=== PATIENT | male | born 1985 | race Caucasian/White ===

== ENCOUNTER 2024-05-08 15:17 | Emergency (ER) | payer MEDICAID, SELFPAY ==
--- NOTE | ~2024-05-08 | XR_ITS ---
EXAMINATION: XR SHOULDER LEFT XR ELBOW LEFT XR WRIST LEFT CLINICAL INFORMATION: History of fall. Difficulty moving the arm. Pain after injury. COMPARISON: None TECHNIQUE: Left shoulder, 3 views Left elbow, 3 views Left wrist, 4 views FINDINGS: Left shoulder: Bones, joints and soft tissues are normal. No fracture or subluxation. There is a bone island of the superior humeral head. No suspicious osseous lesion. Left elbow: Bones have normal alignment. Joint spaces are maintained. No fracture, subluxation or elbow joint effusion. Left wrist: The distal radius, ulna and radioulnar joint are intact. No acute fracture or subluxation. The joint spaces of the wrist are maintained. A well-corticated 0.3 cm ossicle projects posterior to the wrist. XR/XR wrist LT min 3V IMPRESSION: * No fracture or subluxation at the left shoulder. * No evidence of acute osseous injury at the left wrist or elbow. Bones have normal alignment.
--- NOTE | ~2024-05-08 | CT_ITS ---
CT HEAD WITHOUT IV CONTRAST CT CERVICAL SPINE WITHOUT IV CONTRAST CT MAXILLOFACIAL WITHOUT IV CONTRAST INDICATION: Trauma COMPARISON: None TECHNIQUE: Multidetector CT acquisitions of the head, maxillofacial region, and cervical spine were obtained without IV contrast. Multiplanar reformats were acquired and utilized for image interpretation. DLP: 445 mGy-cm FINDINGS: HEAD: There is no intracranial hemorrhage or extra-axial fluid collection. The ventricles are unremarkable without hydrocephalus. No midline shift or mass effect. Parada to white matter differentiation is diffusely maintained without evidence of an evolved acute territorial infarct. The basilar cisterns are preserved. No soft tissue or osseous abnormality. The mastoid air cells and paranasal sinuses are notable for mild diffuse sinus disease. No air-fluid level. MAXILLOFACIAL: The mandible, maxilla, pterygoid plates, zygomatic arches, paranasal sinus bolivar, and bony orbits are intact. No acute osseous abnormality within the maxillofacial region. There is destruction of the nasal bones bilaterally without overlying soft tissue swelling favoring chronic changes. The paranasal sinuses and mastoid air cells remain well-aerated. The globes and extra-ocular musculature is intact. No significant soft tissue findings. CERVICAL SPINE: There is anatomic alignment of the vertebral bodies and posterior elements. There is no acute fracture and there is no acute subluxation. The craniocervical and atlantoaxial articulations are normal. There is no prevertebral soft tissue swelling. No significant soft tissue abnormality within the neck. Straightening of the cervical spine suggest spasm. The visualized lung apices are clear. CT/CT cervical spine wo IV con IMPRESSION: 1. No acute intracranial abnormality. 2. No acute osseous abnormality within the cervical spine. 3. No definite acute osseous abnormality within the maxillofacial region. Nasal bone deformities suggesting chronic changes as above. Correlate with physical exam.
--- NOTE | ~2024-05-08 | XR_ITS ---
EXAMINATION: XR SHOULDER LEFT XR ELBOW LEFT XR WRIST LEFT CLINICAL INFORMATION: History of fall. Difficulty moving the arm. Pain after injury. COMPARISON: None TECHNIQUE: Left shoulder, 3 views Left elbow, 3 views Left wrist, 4 views FINDINGS: Left shoulder: Bones, joints and soft tissues are normal. No fracture or subluxation. There is a bone island of the superior humeral head. No suspicious osseous lesion. Left elbow: Bones have normal alignment. Joint spaces are maintained. No fracture, subluxation or elbow joint effusion. Left wrist: The distal radius, ulna and radioulnar joint are intact. No acute fracture or subluxation. The joint spaces of the wrist are maintained. A well-corticated 0.3 cm ossicle projects posterior to the wrist. XR/XR elbow LT min 3V IMPRESSION: * No fracture or subluxation at the left shoulder. * No evidence of acute osseous injury at the left wrist or elbow. Bones have normal alignment.
--- NOTE | ~2024-05-08 | XR_ITS ---
EXAMINATION: XR SHOULDER LEFT XR ELBOW LEFT XR WRIST LEFT CLINICAL INFORMATION: History of fall. Difficulty moving the arm. Pain after injury. COMPARISON: None TECHNIQUE: Left shoulder, 3 views Left elbow, 3 views Left wrist, 4 views FINDINGS: Left shoulder: Bones, joints and soft tissues are normal. No fracture or subluxation. There is a bone island of the superior humeral head. No suspicious osseous lesion. Left elbow: Bones have normal alignment. Joint spaces are maintained. No fracture, subluxation or elbow joint effusion. Left wrist: The distal radius, ulna and radioulnar joint are intact. No acute fracture or subluxation. The joint spaces of the wrist are maintained. A well-corticated 0.3 cm ossicle projects posterior to the wrist. XR/XR shoulder LT min 2V IMPRESSION: * No fracture or subluxation at the left shoulder. * No evidence of acute osseous injury at the left wrist or elbow. Bones have normal alignment.
[2024-05-08 15:54] VITALS: BP 135/83; PULSE 83; RESP 19; TEMP 36.6; O2SAT 97; BMI 29.3
--- NOTE | 2024-05-08 15:54 | ED.GENADULT ---
HPI - General Adult General Chief complaint: Extremity Injury, Upper Stated complaint: L arm and chin inj Time Seen by Provider: 05/08/24 18:07 Source: patient Mode of arrival: ambulatory Limitations: no limitations History of Present Illness HPI narrative: Patient is a 38-year-old male who presents emergency department for evaluation after a fall. He reports that he was building a deck at his mother's house, the ladder had accidentally fallen from beneath him, reports that he fell approximately 6-10 feet without any loss of consciousness. He fell prone striking his chin onto the ground bracing his fall with the bilateral forearms. He reports pain to without loose with, is able to open and close the jaw without difficulty denies head or neck pain. He reports that he initially had significant pain to the left elbow and wrist, it was unable to move the extremity without severe pain but this has improved since arrival. Denies any dizziness, lightheadedness, vision changes, chest pain, shortness of breath, abdominal pain, nausea, vomiting, genitourinary symptoms, numbness or tingling of the extremities. Related Data Allergies Allergy/AdvReac Type Severity Reaction Status Date / Time No Known Allergies Allergy Verified 05/08/24 15:57 [No Known Allergies*] Review of Systems Review of Systems: Yes all other systems are reviewed and are negative PMFSH Past Medical History Attestation statement: The following information was validated with the patient. Source: old records reviewed Social History Social History Advance Directives: No Advance Directives Information Provided: No Do you have a plan to hurt others: No Plan Physical Exam ED Vital Signs: Vital Signs - 24 hr 05/08/24 15:54 05/08/24 18:12 Temperature 98 F 97.3 F Pulse Rate 83 66 Respiratory Rate 19 18 Blood Pressure 135/83 96/60 Pulse Oximetry 97 97 Oxygen Delivery Method Room Air BMI result Body Mass Index 29.3 Appearance: Alert.?Oriented to person, place and time. No acute distress.?Normal affect. Eyes: Pupils equal, round and reactive to light.? ENT: Pharynx normal.?? Neck: Normal inspection.? Neck supple.?? CVS: Heart sounds normal. Normal heart rate and rhythm.? Pulses normal.?? Respiratory: No respiratory distress.? Lung sounds clear to auscultation bilaterally?? Abdomen: Soft and non-tender. Normoactive bowel sounds. No pulsatile mass.?? Skin: Skin warm and dry.? Normal skin color.? Extremities: No lower extremity edema.? No obvious deformity to the left upper extremity. Pain with flexion extension of the left wrist without obvious deformity, 2+ radial pulse. Full range of motion to the left elbow and shoulder, abrasion to the proximal left forearm with ecchymosis. Neuro: Moves all extremities spontaneously. Sensation intact bilaterally. CN II-XII intact. No focal neuro deficits. Ambulates with normal steady gait. Course Course Course Narrative: RME performed by Mirtha Gonzalez PA-C. Patient is a 38 year old assigned male at presenting to the emergency department with a chin and left arm injury after falling approximately 8-10 feet. Patient states he fell and landed directly on the left elbow and chin. Denies any loss of consciousness. 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 Imaging ordered. Patient placed back in the waiting room pending room availability and results. Medical Decision Making Medical Decision Making MDM Narrative: Patient is a 38-year-old male who presents emergency department for evaluation after a fall as per HPI. Overall the time my examination he appears well, has no focal neurological deficits, vital signs are stable. Head is normocephalic and atraumatic, CT of the head and cervical spine was without evidence of acute fracture, subluxation, ICH, SDH. CT facial bones reveals no evidence of acute fracture, he has mild tenderness upon palpation to the mid mandible without palpable deformity, full range of motion to the jaw. Dentition is normal. Regarding his left upper extremity, he has full active range of motion to the left elbow, mildly decreased range of motion to the left wrist, and diffuse tenderness concerning for acute sprain. Extremities neurovascularly intact distally. He was provided with a volar splint. Discussed conservative treatment, signs and symptoms to monitor for at home including signs of concussion. His chest pain abdominal examination is benign, clinically have low suspicion acute intra-abdominal pathology. Advised outpatient follow-up with primary care provider, discussed worrisome signs and symptoms that would warrant re-evaluation in the emergency department. Differential Diagnosis Differential Diagnoses: The differential diagnosis associated with the presentation includes (See narrative above) Admission/Observation Consideration of admission/observation: Escalation of care including admission/observation considered Independent Interpretation I performed an independent interpretation of an: Plain X-Ray (No acute fracture dislocation of the left elbow/wrist) Radiology Impression Discussion of test interpretation with radiology: I have reviewed the radiologist's reading. Radiologist Impression: CT/CT cervical spine wo IV con IMPRESSION: 1. No acute intracranial abnormality. 2. No acute osseous abnormality within the cervical spine. 3. No definite acute osseous abnormality within the maxillofacial region. Nasal bone deformities suggesting chronic changes as above. Correlate with physical exam. XR/XR elbow LT min 3V IMPRESSION: * No fracture or subluxation at the left shoulder. * No evidence of acute osseous injury at the left wrist or elbow. Bones have normal alignment. Independent Historian Clinical information obtained from an independent historian. History obtained from or confirmed by: Parent Prescription Management I considered prescription management with: Pain Medication (See narrative above) Discharge Plan Discharge Clinical Impression: Left wrist sprain, Chin contusion, Contusion of elbow, left, Fall Instructions: Contusion in Adults (ED), R.I.C.E. Treatment (ED), Wrist Sprain (ED) Additional Instructions: You can take ibuprofen 200 mg, 3 tablets (600mg) every 6-8 hours as needed for pain, in addition to Tylenol 500 mg, 2 tablets (1,000mg) every 4-6 hours as needed for pain, but not to exceed 3 doses daily (3,000mg).? Referrals: Joel Cochran MD [Primary Care Provider] - Print Language: Slovenian
[2024-05-08 18:12] VITALS: BP 96/60; PULSE 66; RESP 18; TEMP 36.3; O2SAT 97
[2024-05-08 19:33] VITALS: BP 112/77; PULSE 80; RESP 18; TEMP 36.9; O2SAT 97
[2024-05-08 19:42] VITALS: BP 112/77; PULSE 80; RESP 18; TEMP 36.9; O2SAT 97
== END 2024-05-08 19:42 | disposition home or self-care (01) ==
PROVIDERS: Emergency Provider Student in an Organized Health Care Education/Training Program; PCP Internal Medicine
DX: S63.502A Unspecified sprain of left wrist, initial encounter (principal); S00.83XA Contusion of other part of head, initial encounter; S50.02XA Contusion of left elbow, initial encounter; R51.9 Headache, unspecified; M25.512 Pain in left shoulder; X58.XXXA Exposure to other specified factors, initial encounter; W11.XXXA Fall on and from ladder, initial encounter; Y93.89 Activity, other specified; Y92.096 Garden or yard of other non-institutional residence as the place of occurrence of the external cause; Y99.8 Other external cause status
CPT/HCPCS: 29125; 70450; 70486; 72125; 73030; 73080; 73110; 99284

== ENCOUNTER → 2025-04-13 14:53 | Outpatient (BNVA) | payer SELFPAY | PROVIDERS: PCP Internal Medicine; Visit Provider Physician Assistant Medical | DX: Z02.79 Encounter for issue of other medical certificate (principal) ==

== ENCOUNTER 2025-09-10 12:31 | Emergency (ER) | payer OTHER, SELFPAY ==
--- NOTE | ~2025-09-10 | CT_ITS ---
EXAMINATION: CT HEAD WITHOUT CONTRAST CLINICAL INFORMATION: dizziness COMPARISON: May 08, 2024. TECHNIQUE: Contiguous axial imaging was performed from the skull base to vertex without intravenous administration of contrast. This CT examination was performed using dose optimization techniques as appropriate, variously including the following: *Automated exposure control *Adjustment of mA and/or kV according to patient size (this includes techniques or standardized protocols for targeted exams where dose is matched to indication/reason for exam; i.e. extremities or head) *Use of iterative reconstruction technique DLP: 692 mGy-cm FINDINGS: Deformity of the paranasal bones, old. No acute fracture, bony calvarium. No acute intracranial hemorrhage, mass effect, midline shift, hydrocephalus or herniation. Parada-white matter differentiation is normal. Posterior cranial fossa contents demonstrated no acute hemorrhage or mass effect. Normal position of the cerebellar tonsils. Sellar/suprasellar region demonstrated no gross masses. Mucosal thickening, paranasal sinuses without air-fluid levels. Tympanic cavities and mastoid cells are aerated. CT/CT head/brain wo IV con IMPRESSION: No acute intracranial hemorrhage or acute brain abnormality by CT. Old traumatic deformities, nasal bones. Paranasal sinus disease, likely chronic. Electronically signed by: Lake Rogers MD 09/10/2025 02:31 PM [facility]
[2025-09-10 13:08] VITALS: BP 123/62; PULSE 80; RESP 18; TEMP 36.5; O2SAT 97; BMI 27.4
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
[2025-09-10 13:36] LABS: MANUAL DIFF FLAG NO
[2025-09-10 13:39] LABS: Hematocrit 45.6 % (42.0-52.0); Hemoglobin 15.3 g/dl (14.0-18.0); Imm Gran Abs Auto 0.14 X10*3/uL (0.00-0.03); Imm Gran Pct Auto 1.1 % (0.0-0.4); Lymphocytes Absolute Auto 2.9 X10*3/uL (1.2-4.9); Mean Corpuscular HGB Conc 33.6 g/dl (31.0-36.0); Mean Corpuscular Hemoglobin 29.9 pg (27.0-33.0); Mean Corpuscular Volume 89.2 fL (80.0-98.0); NRBC Abs Auto 0.000 X10*3/uL (0.0-0.012); NRBC Pct Auto 0.0 /100WBC (0.0-0.2); Platelet Count 306 X10*3/uL (160-400); Red Blood Count 5.11 X10*6/uL (4.60-5.80); White Blood Count 12.6 X10*3/uL (4.8-10.8)
[2025-09-10 13:44] LABS: INTERNATIONAL NORM RATIO 0.9 (0.9-1.1); Prothrombin Time 11.1 SEC (11.2-13.5)
[2025-09-10 13:46] LABS: Partial Thromboplastin Time 28.3 SEC (26.7-34.1)
[2025-09-10 14:01] LABS: Troponin-I High Sensitivity < 2.7 ng/L (<3.5-35.0)
[2025-09-10 14:03] LABS: Alanine Aminotransferase 26 U/L (0-40); Albumin Level 4.3 g/dL (3.5-5.0); Alkaline Phosphatase 60 U/L (39-117); Anion Gap 14 (12-20); Aspartate Amino Transferase 29 U/L (5-37); Blood Urea Nitrogen 20 mg/dL (9-16); Calcium 9.6 mg/dL (8.4-10.2); Carbon Dioxide 27 mmol/L (22-29); Chloride 103 mmol/L (96-108); Creatinine Clr Calc Pharmacy 91.9; Estimated Glomerular Filt Rate 59; Magnesium 2.2 mg/dL (1.6-2.6); Potassium 4.1 mmol/L (3.3-5.1); Sodium 140 mmol/L (135-145); Total Protein 7.4 g/dL (6.5-8.0)
[2025-09-10 16:10] VITALS: BP 123/81; PULSE 70; RESP 16; TEMP 36.5; O2SAT 97
--- NOTE | 2025-09-10 16:21 | ECG_ITS ---
Test Reason : WEAKNESS Blood Pressure : */* mmHG Vent. Rate : 58 BPM Atrial Rate : 58 BPM P-R Int : 144 ms QRS Dur : 92 ms QT Int : 426 ms P-R-T Axes : 57 61 64 degrees QTcB Int : 418 ms Sinus bradycardia Otherwise normal ECG When compared with ECG of 14-Jan-2016 08:39, No significant change was found Referred By: Doc Major Electronically Signed By: YANG AVILA
[2025-09-10 18:01] VITALS: BP 110/75; PULSE 75; RESP 19; TEMP 36.6; O2SAT 98
[2025-09-10 18:16] VITALS: BP 110/75; PULSE 75; RESP 19; TEMP 36.6; O2SAT 98
== END 2025-09-10 18:16 | disposition home or self-care (01) ==
PROVIDERS: Physician Assistant; Emergency Provider Emergency Medicine
DX: G47.419 Narcolepsy without cataplexy (principal); R42 Dizziness and giddiness; H53.8 Other visual disturbances; R00.1 Bradycardia, unspecified; Z79.899 Other long term (current) drug therapy
CPT/HCPCS: 36415; 70450; 80053; 82550; 83735; 84443; 84484; 85025; 85610; 85730; 93005; 99285

== ENCOUNTER → 2025-09-10 13:10 | Outpatient (BNV) | payer MEDICAID, SELFPAY | PROVIDERS: Visit Provider Radiology Diagnostic Radiology | DX: R42 Dizziness and giddiness (principal); J34.89 Other specified disorders of nose and nasal sinuses; Z87.828 Personal history of other (healed) physical injury and trauma | CPT/HCPCS: 70450 ==

== ENCOUNTER → 2025-09-10 16:21 | Outpatient (BNV) | payer MEDICAID, SELFPAY | PROVIDERS: Emergency Provider Emergency Medicine; Visit Provider Internal Medicine | DX: R00.1 Bradycardia, unspecified (principal) | CPT/HCPCS: 93010 ==

== ENCOUNTER 2025-09-17 13:07 | Outpatient (REF) | payer OTHER, SELFPAY ==
[2025-09-17 16:49] LABS: Cholesterol 212 mg/dL (<200); HDL Cholesterol 48 mg/dL (>40); Triglycerides 362 mg/dL (<150)
[2025-09-18 04:37] LABS: Syphilis Screen Nonreactive (Nonreactive)
[2025-09-18 05:12] LABS: HBS Num1 103.61 mIU/mL (0-7.99); HBc Num1 0.10 S/CO (0.00-0.79); HBsAGNum1 0.49 S/CO (0.00-0.99); HIV Num 1 0.09 S/CO (0.00-0.99); Hepatitis A Antibody IgM 0.16 Index (0-0.79); Hepatitis B Surface Antigen Negative (Negative); ~HepC Num1 0.14 S/CO (0.00-0.79); ~Hepatitis A Antibody IgM Nonreactive (Nonreactive); ~Hepatitis B Surface Antibody REACTIVE (Nonreactive); ~Hepatitis C Antibody Nonreactive (Nonreactive)
== END 2025-09-17 13:08 | disposition home or self-care (01) ==
LOC: HO.LAB 13:07
PROVIDERS: Visit Provider Student in an Organized Health Care Education/Training Program
DX: Z00.00 Encounter for general adult medical examination without abnormal findings (principal); R53.83 Other fatigue; F32.A Depression, unspecified; F17.210 Nicotine dependence, cigarettes, uncomplicated; G47.419 Narcolepsy without cataplexy
CPT/HCPCS: 36415; 80061; 82043; 82306; 82570; 83036; 84443; 86704; 86706; 86709; 86780; 86803; 87340; 87389; 96127; 99202; 99385

== ENCOUNTER 2025-09-17 13:07 | Outpatient (AMB) | payer OTHER, SELFPAY ==
[2025-09-17 13:05] VITALS: BP 120/82; PULSE 80; TEMP 36.2; O2SAT 98; BMI 27.5
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
--- OUTSIDE RECORDS SUMMARY | 2025-09-17 17:43 | XMS_ITS | Clinical Summary ---
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 Name Role Phone Unavailable Primary Care Provider Unavailabl e Social History Tobacco Use Types Packs/Day Years Used Date Smoking Tobacco: Never Assessed Sex and Gender Information Value Date Recorded Sex Assigned at Not on file Legal Sex Male 1:35 PM EDT Gender Identity Not on file Sexual Orientation Not on file Plan of Treatment Health Maintenance Due Date Last Done Comments DTaP,Tdap,and Td Vaccines (1 - Tdap) 2006 Hepatitis B Vaccines (1 of 3 - 19+ 3-dose series) 2006 HPV Vaccines (1 - 3-dose SCD M series) 2014 Cholesterol Screening (Lipid Panel) 05/26/2024 HIV Screening 05/26/2024 Hepatitis C Screening 05/26/2024 Social Influencers of Health Screening 05/26/2024 Depression Screening 10/25/2024 COVID-19 Vaccine (1 - 2024-2 6 season) 2025 Influenza Vaccine (#1) 2025 RSV Immunization Adult Patie nts (1 - 1-dose 75+ series) 2062 HIB Vaccines Aged Out No longer eligi ble based on patient's age to complete this topic Hepatitis A Vaccines Aged Out No long er eligible based on patient's age to complete this topic IPV Vaccines Aged Out No longer eligi ble based on patient's age to complete this topic MMR Vaccines Aged Out No longer eligi ble based on patient's age to complete this topic Meningococcal ACWY Vaccine Aged Out N o longer eligible based on patient's age to complete this topic Meningococcal B Vaccine Aged Out No l onger eligible based on patient's age to complete this topic Pneumococcal Vaccine: Pediat rics (0 to 5 Years) and At-Risk Patients (6 to 49 Years) Aged Out No longer eligible b ased on patient's age to complete this topic RSV Immunization Patients Un henri 20 months Aged Out No longer eligible b ased on patient's age to complete this topic Varicella Vaccines Aged Out No longer eligible based on patient's age to complete this topic
== END 2025-09-17 13:45 | disposition home or self-care (01) ==
PROVIDERS: Visit Provider Student in an Organized Health Care Education/Training Program
DX: Z00.00 Encounter for general adult medical examination without abnormal findings (principal); G47.419 Narcolepsy without cataplexy; F32.A Depression, unspecified; F17.200 Nicotine dependence, unspecified, uncomplicated

== ENCOUNTER 2025-09-26 15:14 | Outpatient (AMB) | payer OTHER, SELFPAY ==
[2025-09-26 15:23] VITALS: BP 110/76; PULSE 66; O2SAT 96; BMI 27.7
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
== END 2025-09-26 16:02 | disposition home or self-care (01) ==
LOC: HO.HSMS 15:15
PROVIDERS: PCP Student in an Organized Health Care Education/Training Program; Visit Provider Psychiatry & Neurology Neurology
DX: G47.10 Hypersomnia, unspecified (principal); R06.83 Snoring; F19.90 Other psychoactive substance use, unspecified, uncomplicated
CPT/HCPCS: 99204

== ENCOUNTER 2025-09-26 15:14 | Outpatient (REF) | payer OTHER, SELFPAY ==
--- OUTSIDE RECORDS SUMMARY | 2025-09-26 18:50 | XMS_ITS | Clinical Summary ---
Author Organization [facility] it[facility] Address [address] [place] [id number] Care Team Providers Care Physical Therapy Professor Name Role Phone Unavailable Primary Care Provider [...]
[2025-09-26 19:32] LABS: Folate 7.8 ng/mL (> or = 4.0); Vitamin B12 563 pg/mL (200-900)
== END 2025-09-26 15:15 | disposition home or self-care (01) ==
LOC: HO.HKASLDS 15:14
PROVIDERS: PCP Student in an Organized Health Care Education/Training Program; Visit Provider Psychiatry & Neurology Neurology
DX: G47.10 Hypersomnia, unspecified (principal); R06.83 Snoring; F19.10 Other psychoactive substance abuse, uncomplicated; Z79.899 Other long term (current) drug therapy
CPT/HCPCS: 36415; 82607; 82746; 99202

== ENCOUNTER 2025-10-15 13:58 | Outpatient (AMB) | payer OTHER, SELFPAY ==
--- NOTE | 2025-10-15 14:01 | MHC.PC.OV ---
Vital Signs 10/15/25 14:04 Height 6 ft 2.5 in Weight 224 lb BMI 28.4 BP 123/90 H Blood Pressure Location Lt brachial Position Sitting Respiration 16 Pulse 95 Pulse Source Monitor Temp 98.8 F Temp Source Temporal Artery Scan Oxygen Delivery Method Room Air Oxygen Flow Rate 97 Intake Visit Reasons: 1 Month F/U Narcolepsy Low Pressure Firer Required: No Allergies No Known Allergies (No Known Allergies*) Allergy (Verified 10/15/25 14:02) Medication List - Last Reconciled 10/15/25 by Bailey Joy LPN cholecalciferol (vitamin D3) 1,250 mcg PO QWEEK fluoxetine (Prozac) 10 mg PO DAILY modafinil 200 mg PO DAILY 30 days Tobacco use date assessed: 09/17/25 Dental Screening Dental Screen Date: 09/17/25 HPI HPI Comments History of Present Illness Details History of Present Illness The patient is a 40 year old male presenting for medication management for narcolepsy. He reports that his current regimen of Modafinil 200 mg, taken around 6:30-7:00 AM, is effective until about noon, after which he experiences significant drowsiness. He has been on the 200 mg dose for about 10 days. Prior to this, a 100 mg dose was ineffective, as he was still falling asleep during the day. The patient is also taking Prozac for narcolepsy. He has a sleep study scheduled for November 11. The patient is also being treated for vitamin D deficiency with a weekly supplement. He reports initially taking the medication daily by mistake but has since corrected the frequency. The patient described an episode that occurred last Wednesday where he woke up feeling nauseous and dizzy. After sitting down and drinking juice, he began sweating profusely, became hot, and then experienced a loss of vision upon standing up, though he retained his hearing and sense of touch. An ambulance was called, and paramedics found his vitals to be normal with a blood sugar of 130. He states similar episodes occur about once a year. The patient is currently not working due to his medical condition and is applying for beck assistance. Medical History: - Narcolepsy - Vitamin D deficiency - History of syncopal episodes, occurring approximately once a year Medications: - Modafinil 200 mg, for excessive daytime sleepiness. - Vitamin D, once weekly, for vitamin D deficiency. - Prozac, for narcolepsy. Diagnostic Results: - [id number] testing by paramedics during syncopal episode: Blood sugar 130. Social History - Employment: Patient is currently unable to work due to his medical condition. - Financial: Reports having no income and has applied for state beck assistance. - Substance Use: Patient has been counseled to avoid illicit drugs such as cocaine and heroin. [facility] Medical History (Updated 10/15/25 @ 14:31 by Clay Hackett MD) Narcolepsy Counseling on substance use and abuse Vitamin D deficiency Vasovagal syncope Substance use disorder Snoring Hypersomnia Tobacco use disorder Depression Family History Mother Mental health disorder Father No problems noted. Social History Housing: Other (Hotel) Patient Tobacco Use Status: Current everyday Tobacco user e-Cigarette/Vaping Use: Currently Using service: No Current occupational status: unemployed Cognitive needs: No Hearing needs: No Vision needs: Yes (rx glasses) Questionnaire Thrive Questionnaire Date Thrive assessed: 09/17/25 GAGAN-7 AMB Questionnaire GAGAN-7 Date GAGAN - 7 assessed: 09/17/25 Source: Developed by Drs. Donn Glover, Mary Joy, Lexa Pickering and colleagues, with an educational belkis from [employer]. Review of Systems Narrative Review of Systems - Constitutional: Reports fatigue and drowsiness, particularly in the afternoon. - Neurological: Reports excessive daytime sleepiness and a history of syncopal episodes characterized by dizziness, nausea, and temporary vision loss. - Skin: Reports profuse sweating associated with syncopal episodes. - GI: Reports nausea preceding a syncopal episode. - Eyes: Reports temporary vision loss during a syncopal episode. All systems reviewed & are unremarkable except as reviewed in HPI and above Physical exam (Primary Care) Vital Signs: Last Vital Signs Temp 98.8 F 10/15/25 14:04 Pulse 95 10/15/25 14:04 Resp 16 10/15/25 14:04 BP 123/90 H 10/15/25 14:04 Oxygen Delivery Method Room Air 10/15/25 14:04 Oxygen Flow Rate 97 10/15/25 14:04 BMI result Body Mass Index 28.4 Tobacco/Smoking Status: Tobacco use Status Tobacco use date assessed 09/17/25 10/15/25 14:12 Patient Tobacco Use Status Current everyday Tobacco 10/15/25 14:12 e-Cigarette/Vaping Use Currently Using 10/15/25 14:12 Thrive Assessment: Date of Thrive Assessment Date Thrive assessed 09/17/25 10/15/25 14:12 Narrative Physical Exam General: Alert and oriented, Well nourished, No acute distress. Eye: Pupils are equal, round and reactive to light, Intact accommodation, Extraocular movements are intact, Normal conjunctiva, Vision unchanged. HENT: Normocephalic, Atraumatic, Tympanic membranes are clear, Normal hearing, Oral mucosa is moist, No pharyngeal erythema, Ear canals patent. Respiratory: Lungs CTA bilaterally, No wheeze, Respirations are non-labored. Cardiovascular: Regular rate, Regular rhythm, S1 auscultated, S2 auscultated, No murmur, Good pulses equal in all extremities, Normal peripheral perfusion, No edema. Gastrointestinal: Soft, Non-tender, Non-distended, Normal bowel sounds, No organomegaly. Musculoskeletal: Normal range of motion, Normal strength, No tenderness, No swelling, No deformity, Normal gait. Integumentary: Warm, Dry, [place], Intact. Neurologic: Alert, Oriented, Normal sensory, Normal motor function, No focal defects, Cranial Nerves II-XII are grossly intact, Normal deep tendon reflexes. Psychiatric: Cooperative, Appropriate mood & affect, Normal judgment. 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 - The plan is to increase the total daily dose to 300 mg. A prescription for Modafinil 100 mg tablets will be provided with instructions to take 2 tablets (200 mg) in the morning and 1 tablet (100 mg) at noon. - This dosing strategy aims to extend the therapeutic effect throughout the day and may improve chances of insurance approval. - The patient will continue Prozac. - A sleep study is scheduled for November 11. - Follow up in four weeks to assess efficacy. Code(s): G47.419 - Narcolepsy without cataplexy Category: Medical Qualifiers: Narcolepsy type: primary without cataplexy Qualified Code(s): G47.419 - Narcolepsy without cataplexy (2) Vasovagal syncope: Comment: - The patient described an episode of syncope with a prodrome of nausea, dizziness, and diaphoresis, which is characteristic of a vasovagal event. - Post-event vitals were normal. - The patient is advised to be cautious with positional changes and to log details of any future episodes, including preceding activities and diet. - He was advised to discuss this with his urologist. Code(s): R55 - Syncope and collapse Category: Medical (3) Vitamin D deficiency: Comment: - The patient is on weekly replacement therapy and has corrected an initial misunderstanding of the dosing frequency. - He will continue the weekly Vitamin D supplementation as prescribed. Code(s): E55.9 - Vitamin D deficiency, unspecified Category: Medical (4) Counseling on substance use and abuse: Comment: - The patient was strongly advised to abstain from all illicit drugs, including cocaine and heroin, due to dangerous interactions with Modafinil and to ensure accurate results for his upcoming sleep study. - He was informed that non-adherence would result in the discontinuation of his prescriptions. Code(s): Z71.89 - Other specified counseling Category: Medical Plan: Health Maintenance: - A sleep study is scheduled for November 11 for further evaluation of narcolepsy. - The patient was counseled on the risks of illicit drug use, particularly while taking Modafinil, and advised complete abstinence. Patient was informed and verbally consented to the use of an ambient scribe for clinic note documentation during this visit. Plan I discussed with the patient that his current dose of Modafinil 200 mg is not lasting the full day. We agreed to increase the total daily dose to 300 mg, split into 200 mg in the morning and 100 mg at noon, to provide better symptom coverage. I explained that writing the prescription for 100 mg tablets might circumvent potential insurance issues. We reviewed his recent syncopal episode, and I explained that the symptoms are consistent with a vasovagal event. I advised him to be cautious with positional changes and to discuss the matter further with his urologist. I counseled him strongly on the need to abstain from all illicit drugs like cocaine and heroin, highlighting the risks of interaction with Modafinil and the importance of accurate results for his upcoming sleep study. I made it clear that future prescriptions are contingent on his abstinence. We agreed to follow up in four weeks to review his response to the new medication regimen. Medications: New modafinil Take 2 tabs in the morning, and 1 in the afternoon (for a total of 3) 300 mg (3 x 100 mg) PO QAM 90 tabs 0RF 30 days Discontinued modafinil Discontinued Reason: Doctor's Order 200 mg PO DAILY 30 days 30 tabs 0RF Patient Instructions: - Change your Modafinil dose: Take two 100 mg tablets in the morning and one 100 mg tablet around noon. - Continue to take your vitamin D supplement once per week. - Continue taking Prozac as prescribed. - Do not use any illegal drugs like cocaine or heroin. This is very important for your safety and for your treatment to continue. - Remember your sleep study is scheduled for November 11. - If you experience another episode of dizziness and fainting, be careful when standing up. Keep a log of these events and discuss them with your urologist. - I will help you fill out the paperwork for beck assistance. - We will have a follow-up appointment in about four weeks.
[2025-10-15 14:04] VITALS: BP 123/90; PULSE 95; RESP 16; TEMP 37.1; BMI 28.4
--- OUTSIDE RECORDS SUMMARY | 2025-10-15 17:27 | XMS_ITS | Clinical Summary ---
Author Organization [facility] ity Address [id number] [place] [id number] Care Team Providers Care Senior Accountant Cpa Name Role Phone Unavailable Primary Care Provider [...]
== END 2025-10-15 14:30 | disposition home or self-care (01) ==
LOC: HO.HMCHD 13:58
PROVIDERS: PCP Student in an Organized Health Care Education/Training Program; Visit Provider Student in an Organized Health Care Education/Training Program
DX: G47.419 Narcolepsy without cataplexy (principal); R55 Syncope and collapse; E55.9 Vitamin D deficiency, unspecified; Z71.89 Other specified counseling

== ENCOUNTER → 2025-10-15 13:58 | Outpatient (BNVA) | payer OTHER, SELFPAY | PROVIDERS: PCP Student in an Organized Health Care Education/Training Program; Visit Provider Student in an Organized Health Care Education/Training Program | DX: G47.19 Other hypersomnia (principal); R55 Syncope and collapse; E55.9 Vitamin D deficiency, unspecified; Z71.89 Other specified counseling | CPT/HCPCS: 99212 ==